=== PATIENT | male | born 1990 | race American Indian/Alaskan Native ===

== ENCOUNTER 2019-04-27 04:10 | Emergency (ER) | payer SELFPAY ==
[2019-04-27 04:25] VITALS: BP 152/103
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
--- NOTE | 2019-04-27 07:07 | XRay Report ---
XR RIGHT ANKLE 2 VIEWS INDICATION / CLINICAL INFORMATION: pain COMPARISON: None available. FINDINGS: BONES / JOINT(S): No acute fracture or subluxation. No significant arthritis. SOFT TISSUES: No significant abnormality. ADDITIONAL FINDINGS: None. Signer Name: Mercedes Santiago MD Signed: 04/27/2019 7:02 AM Workstation Name: [id number]
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
== END 2019-04-27 06:39 | disposition home or self-care (01) ==
LOC: ED 04:10
DX: S60.512A Abrasion of left hand, initial encounter (principal); V89.2XXA Person injured in unspecified motor-vehicle accident, traffic, initial encounter; Y93.89 Activity, other specified; Y92.410 Unspecified street and highway as the place of occurrence of the external cause; Y99.8 Other external cause status
CPT/HCPCS: 71045; 72040; 72100